=== PATIENT | female | born 1980 | race Caucasian/White ===

== ENCOUNTER 2020-06-10 10:58 | Outpatient (NON) | payer OTHER, SELFPAY ==
[2020-06-10 21:15] LABS: SARS-CoV-2 RNA PCR Negative
== END 2020-06-10 10:59 ==
PROVIDERS: Visit Provider Physician Assistant
DX: R68.83 Chills (without fever) (principal); Z20.828 Contact with and (suspected) exposure to other viral communicable diseases
CPT/HCPCS: 87635; C9803; U0003

== ENCOUNTER 2021-11-21 15:50 | Outpatient (CLI) | payer OTHER, SELFPAY ==
--- NOTE | ~2021-11-21 | MM_ITS ---
EXAMINATION: MM scrn sarah implant BI w miguel HISTORY: Screening mammogram TECHNIQUE: Craniocaudal and mediolateral oblique 3-D tomosynthesis images with implant displacement a nd synthetic 2-D images were generated. Craniocaudal and mediolateral oblique views of the breasts wi thout implant displacement were obtained using full field digital mammography. CAD analysis was submi tted and interpreted. COMPARISON: 12/11/2017 bilateral screening mammogram BREAST PARENCHYMAL COMPOSITION: The breasts are extremely dense, which lowers the sensitivity of mamm ography. FINDINGS: Status post bilateral augmentation mammoplasty. There is no evidence of suspicious mass, ca lcification, or architectural distortion to suggest malignancy in either breast. There has been no garcía spicious interval change. IMPRESSION: 1. No mammographic evidence of malignancy. 2. Recommend routine screening mammography in one year. BI-RADS Category 1: Negative Reviewed, dictated and finalized at location A.
== END 2021-11-21 15:51 | disposition home or self-care (01) ==
LOC: ANHIMG 15:52
PROVIDERS: PCP Physician Assistant; Visit Provider Obstetrics & Gynecology
DX: Z12.31 Encounter for screening mammogram for malignant neoplasm of breast (principal)
CPT/HCPCS: 77063; 77067

== ENCOUNTER 2022-09-22 00:46 | Day surgery (SDC) | payer OTHER, SELFPAY ==
[2022-09-11 15:30] VITALS: BMI 20.9
--- NOTE | 2022-09-11 15:36 | PC.NURSE ---
Report to the Outpatient Waiting Room, entrance under the green pavilion located off [facility], at time 0930 on date 09/22/22. Planned Procedure Time: 1130. Time changes happen often and if your time is changed the preop area will call you the afternoon before. - You and your visitor will be asked to self-screen and do not enter if you have any COVID symptoms. - Only one visitor is requested with a max of two and NO children visitors are allowed at this time. - The patient visitor may be requested to leave or wait in car when not with patient due to distancing restrictions. - A mask is optional within the hospital at this time. Patients may have clear liquids (water, carbonated beverages, clear teas, apple juice) until 3 hours prior to surgery with a maximum of 20 ounces. - No food from midnight until time of surgery Take the following medications with a SIP of water the morning of surgery: SERTRALINE DO NOT STOP ANY OF YOUR OTHER PRESCRIPTION MEDICATIONS PRIOR TO SURGERY EXCEPT THE FOLLOWING Medications to discontinue per physician: N/A Date to take last dose: N/A Please no make-up, nail austrian, hairspray, perfume, deodorant, or body powder the day of surgery. No jewelry (including any body piercings) or valuables the day of surgery, leave them at home. Please take a shower or bath the night before, or the morning of, surgery with an antibacterial soap. Wear comfortable, loose fitting clothing. - Jewelry must be removed prior to entering the operating room. Rings and piercings that are not removed may be cut off. - The hospital will not accept responsibility for valuables. - Please leave all valuables, including medications, at home the day of surgery. If you are going home after surgery, a licensed truss driver helper must drive you home. - NO public transportation without another adult if you receive anesthesia. - We recommend that an adult stay with you for 24 hours following discharge. - We also recommend that you do not drive, make important decision, drink alcoholic beverages, or take any drugs that were not prescribed by your health care provider for at least 24 hours after your discharge time. Follow any additional instructions given to you from your surgeon. If you or anyone in your household have experienced Covid symptoms in the past week, please notify your surgeon or the nurse liaison at the phone number below for possible testing. Telephone instructions given to PT - GREG WEATHERS and asked if any additional questions and then verbalized understanding. Patient advised to call surgeon office or pre surgery nurse liaison [phone] if any additional questions.
--- NOTE | 2022-09-21 10:00 | WPDANESEPPF ---
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 Patient Data Age: 42 Gender: F Height: 1.68 m Weight: 59 kg Allergies Allergy/AdvReac Type Severity Reaction Status Date / Time cephalexin Allergy Intermediate Rash Verified 09/22/22 09:09 levofloxacin Allergy Intermediate Rash Verified 09/22/22 09:09 Home Medications Medication Instructions Recorded Confirmed Type sertraline 100 mg tablet 100 mg PO DAILY 09/06/21 09/22/22 History lisdexamfetamine 30 mg capsule 30 mg PO DAILY 09/20/22 09/22/22 History (Vyvanse) Patient hx anesthesia problems: none Family hx anesthesia problems: none Results Review: All pre-operative results and documents have been reviewed as part of the pre-operative evaluation. [facility] Past Medical History Medical History (Updated 09/06/21 @ 10:06 by Kassy Person) Anxiety Surgical History Surgical History (Updated 09/06/21 @ 10:03 by Key Nelson CMA) History of neck surgery History of spinal fusion Family History Family History Mother Family history of malignant neoplasm of thyroid Social History Social History Smoking status: Never smoker Alcohol intake: never Substance use: never Substance use type: does not use Living arrangements: with family Spiritual care concerns: No Anes - Eval Final PreProcedure Day of Procedure 09/21/22 10:00 Patient weight: normal Heart: regular rate and rhythm Lungs: clear to auscultation and normal air movement Airway: Mallampati scale class II Neurological: alert and oriented Last oral intake: >/= 8 hours ASA classification: I Emergent: no Anesthetic plan: proceed Anesthesia type and monitoring: general GIVS Results Review: All pre-operative results and documents have been reviewed as part of the pre-operative evaluation. Informed Consent: The patient's anesthetic plan and its attendant risks and benefits were discussed with the patient/family/POA. Questions were solicited and answers provided to the satisfaction of the patient/family/POA.
--- NOTE | 2022-09-22 07:37 | WPDHPUPDATE1 ---
History and Physical Update Update Date/Time: 09/22/22 07:37 History and Physical has been reviewed, including an updated exam of the patient. There are NO changes in the patient's condition. Risks, benefits, and alternatives have been discussed and questions answered. Patient agrees to proceed with procedure.
[2022-09-22 08:45] VITALS: BP 120/85; PULSE 78; RESP 16; TEMP 36.3; O2SAT 100
[2022-09-22] MEDS: LACTATED RINGERS 1,000 ML 30 ML IV CONT (09:20)
[2022-09-22] MEDS: CLINDAMYCIN 900 MG/D5W 50 ML 900 MG/50 ML PIGGYBACK 50 MG IVPB (10:35)
[2022-09-22] MEDS: BUPivacaine HCL 0.5% PF 30 ML VIAL 10 ML INFILTRATE (10:52)
[2022-09-22 11:20] VITALS: BP 88/57; PULSE 80; RESP 14; O2SAT 100
--- NOTE | 2022-09-22 11:43 | P.OP_ITS ---
Procedure Note - Detailed Date of Procedure 09/22/22 Pre-op Diagnosis Antoine's neuroma left foot Post-op Diagnosis Same Procedure Performed Excision of Antoine's neuroma left foot Surgeon Stef Barron JR, DPBryant Anesthesia MAC and Local Indications Pain and paresthesias 3rd intermetatarsal space left foot Findings hypertrophic amorphous fibrous/neural tissue to the third intermetatarsal space Description of Procedure Under mild sedation, the patient was brought in to the operating room, placed on the operating table in the supine position. A pneumatic ankle tourniquet was placed about the patient's ipsilateral ankle. Following IV sedation, local anesthesia was obtained about the ankle utilizing 20 mL of 0.5% Marcaine plain and 2% Lidocaine plain to with an ankle ring block. The foot was then scrubbed, prepped, and draped in the usual aseptic manner. An Esmarch bandage was then used to exsanguinate the patient's foot and the pneumatic ankle tourniquet was then inflated. An incision was made along the dorsal 3rd inter metatarsal space. All bleeders were cauterized as necessary. The Deep transverse intermetatarsal ligament was severed. Next, dissection was continued deep to the proper digital plantar nerve which was hypertrophied and amorphous. It was dissected proximal to the central metatarsal shaft area and transected next the distal branches were dissected and transected to the affected third and fourth digits. The neural tissue was sent for gross and histo. The Deep subcutaneous tissue was reapproximated with 4.0 Vicryl and the skin was reapproximated with 4.0 Monocryl. Upon completion of the procedure, the dorsal incision was dressed with Steri- Strips, Adaptic, 4x4s, Kerlix, and Coban. The pneumatic ankle tourniquet was then deflated and a prompt hyperemic response was noted to all digits of the affected foot. An orthopedic pneumatic boot was then applied. The patient did very well with the procedure and the anesthesia. The patient was transferred to the recovery room with vital signs stable and vascular status intact to all toes of the affected foot. Following a period of postoperative monitoring, the patient will be discharged home on the following written and oral postoperative instructions: 1. The patient should keep the dressing clean, dry, and intact. Use a cast protector bag with showers. 2. The patient will be strictly protected weight bearing with an orthopedic pneumatic boot. 3. Patient should ice and elevate the foot when at rest. 4. The patient is to contact Dr. Barron for all postop care and if any problems arise. 5. Prescriptions were written for Percocet 5/325 dispensed 40 to be taken 1 p.o. q.4-6 hours as needed for severe pain. Estimated Blood Loss 1 Pathology Yes Complications No immediate complications Condition Stable Disposition Same day
[2022-09-22] MEDS: ONDANSETRON INJ 4 MG/2 ML VIAL IV PUSH (11:49)
[2022-09-22 11:50] VITALS: BP 108/61; PULSE 65; RESP 15; O2SAT 100
[2022-09-22 12:30] VITALS: BP 112/69; PULSE 66; RESP 16
== END 2022-09-22 12:35 | disposition home or self-care (01) ==
PROVIDERS: PCP Physician Assistant; Visit Provider Podiatrist Foot & Ankle Surgery
PROC: (CPT 28080; principal; 2022-09-22 10:30)
DX: G57.62 Lesion of plantar nerve, left lower limb (principal); F41.9 Anxiety disorder, unspecified; Z98.1 Arthrodesis status
CPT/HCPCS: 28080; 88304; 88313; J2250; J2405; J2704; J3010; J7120

== ENCOUNTER 2023-01-19 14:15 | Outpatient (CLI) | payer OTHER, SELFPAY ==
--- NOTE | ~2023-01-19 | MM_ITS ---
EXAMINATION: MM scrn sarah implant BI w miguel HISTORY: Screening mammogram TECHNIQUE: Craniocaudal and mediolateral oblique 3-D tomosynthesis images with implant displacement a nd synthetic 2-D images were generated. Craniocaudal and mediolateral oblique views of the breasts wi thout implant displacement were obtained using full field digital mammography. CAD analysis was submi tted and interpreted. COMPARISON: November 21, 2021, December 11, 2017 bilateral implant screening mammogram examinations BREAST PARENCHYMAL COMPOSITION: The breasts are extremely dense, which lowers the sensitivity of mamm ography. FINDINGS: Status post bilateral augmentation mammoplasty. There is no evidence of suspicious mass, ca lcification, or architectural distortion to suggest malignancy in either breast. There has been no garcía spicious interval change. IMPRESSION: 1. No mammographic evidence of malignancy. 2. Recommend routine screening mammography in one year. BI-RADS Category 1: Negative Reviewed, dictated and finalized at location A.
== END 2023-01-19 14:16 | disposition home or self-care (01) ==
PROVIDERS: PCP Physician Assistant; Visit Provider Physician Assistant
DX: Z12.31 Encounter for screening mammogram for malignant neoplasm of breast (principal)
CPT/HCPCS: 77063; 77067

== ENCOUNTER 2023-10-16 11:41 | Emergency (ER) | payer OTHER, SELFPAY ==
[2023-10-16 11:51] VITALS: BP 139/93; PULSE 85; RESP 16; TEMP 36.3; O2SAT 100
--- NOTE | 2023-10-16 11:56 | ED.SKABFB ---
HPI - Skin/Abscess/Foreign Bdy General Chief complaint: Skin/Abscess/Foreign Body Stated complaint: Buttock Abscess Time Seen by Provider: 10/16/23 11:56 Source: patient, RN notes reviewed and old records reviewed Mode of arrival: ambulatory Limitations: no limitations History of Present Illness HPI narrative: 43 year old female who presents to express are with complaints of small abscess to her left lower inner buttock region for 2 week duration. Patient reports some tenderness to area on palpation. Patient reports no drainage from area is concerned because is suppose to go to [facility] in 2 weeks. Patient reports that she has not taken any OTC medications for her discomfort. Patient has minimal redness to skin area on left buttock with palpable induration, no warmth to area, discomfort on palpation. MD complaint: abscess/boil Onset (ago): week(s) (2) Location: buttocks (left) Severity scale (1-10): 6 Exacerbating factors: palpation Treatments prior to arrival: none Related Data Home Medications Medication Instructions Recorded Confirmed sertraline 100 mg tablet 100 mg PO DAILY 09/06/21 10/16/23 lisdexamfetamine 30 mg capsule 30 mg PO DAILY 09/20/22 10/16/23 (Vyvanse) alprazolam 0.25 mg tablet 0.25 mg PO BID PRN Anxiety 10/16/23 10/16/23 Allergies Allergy/AdvReac Type Severity Reaction Status Date / Time cephalexin Allergy Intermediate Rash Verified 10/16/23 11:49 levofloxacin Allergy Intermediate Rash Verified 10/16/23 11:49 Review of Systems Review of Systems: CONSTITUTIONAL: Denies fever, chills, or sweats. CARDIOVASCULAR: Denies chest pain, palpitations, or edema. RESPIRATORY: Denies cough or dyspnea. GASTROINTESTINAL: Denies abdominal pain, nausea, vomiting SKIN: Reports redness and swelling with 1cm X1cm area of induration with no pustule formation to the left lower inner buttock area which is tender to palpation, no fluctuance of skin tissue noted.. Denies purulent drainage, vesicles, pain beyond proportion, Reports no fevers, chills or sweats. MUSCULOSKELETAL: Denies myalgia. 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 There is no relevant family history pertinent to the presenting complaint Exam Narrative: GENERAL: Well-appearing, well-nourished, and in no acute distress. HEAD: Normocephalic, atraumatic. EYES: PERRLA and EOMI. ENT: Nares clear, no rhinorrhea or epistaxis. Mucous membranes moist. NECK: Supple.no lymphadenopathy CHEST: Clear to auscultation. No respiratory distress. SAO2 100% on room air HEART: Regular rate and rhythm. No murmur heard. Normal peripheral pulses. ABDOMEN: Soft, nontender, nondistended, normal active bowel sounds. EXTREMITIES: Normal range of motion. No edema. SKIN: Warm, dry. Erythema, induration, tenderness, 1cm X1cm area to left lower inner buttock with no warmth noted no fluctuance of tissue, only mild redness of skin, increased tenderness past 3 days reported. NEURO: No focal deficits. Alert and oriented x3. Course Course Em
== END 2023-10-16 12:18 | disposition home or self-care (01) ==
PROVIDERS: Emergency Provider Registered Nurse; PCP Physician Assistant
DX: L02.31 Cutaneous abscess of buttock (principal); F41.9 Anxiety disorder, unspecified; F32.A Depression, unspecified; Z79.899 Other long term (current) drug therapy
CPT/HCPCS: 99213; G0463

== ENCOUNTER 2023-12-03 03:32 | Day surgery (SDC) | payer OTHER, SELFPAY ==
[2023-11-26 13:26] VITALS: BMI 21.7
--- NOTE | 2023-11-26 13:30 | PC.NURSE ---
Report to the Outpatient Waiting Room, entrance under the green pavilion located off [facility], at time 1100 on date 12/03/23. Planned Procedure Time: 1300. Time changes happen often and if your time is changed the preop area will call you the afternoon before. - You and your visitor will be asked to self-screen and do not enter if you have any COVID symptoms. - A mask is optional within the hospital at this time. Patients may have clear liquids (water, carbonated beverages, clear teas, apple juice) until 3 hours prior to surgery with a maximum of 20 ounces. - No food from midnight until time of surgery - FOLLOW INSTRUCTIONS FROM DR. JAY'S OFFICE Take the following medications with a SIP of water the morning of surgery: XANAX IF NEEDED, SERTRALINE DO NOT STOP ANY OF YOUR OTHER PRESCRIPTION MEDICATIONS PRIOR TO SURGERY ?EXCEPT THE FOLLOWING Medications to discontinue per physician: N/A Date to take last dose: N/A Please no make-up, nail eritrean, hairspray, perfume, deodorant, or body powder the day of surgery. No jewelry (including any body piercings) or valuables the day of surgery, leave them at home. Please take a shower or bath the night before, or the morning of, surgery with an antibacterial soap. Wear comfortable, loose fitting clothing. - Jewelry must be removed prior to entering the operating room. Rings and piercings that are not removed may be cut off. - The hospital will not accept responsibility for valuables. - Please leave all valuables, including medications, at home the day of surgery. If you are going home after surgery, a licensed driver helper must drive you home. - NO public transportation without another adult if you receive anesthesia. - We recommend that an adult stay with you for 24 hours following discharge. - We also recommend that you do not drive, make important decision, drink alcoholic beverages, or take any drugs that were not prescribed by your health care provider for at least 24 hours after your discharge time. Follow any additional instructions given to you from your surgeon. If you or anyone in your household have experienced Covid symptoms in the past week, please notify your surgeon or the nurse liaison at the phone number below for possible testing. Telephone instructions given to PT Maryann GARZA and asked if any additional questions and then verbalized understanding. Patient advised to call surgeon office or pre surgery nurse liaison [phone] if any additional questions.
[2023-12-03] VITALS (7 sets, daily range): BP systolic 115–132; BP diastolic 66–90; PULSE 71–104; RESP 12–18; TEMP 36.1–36.6; O2SAT 100
[2023-12-03] MEDS: LACTATED RINGERS 1,000 ML 30 ML IV CONT (11:37)
[2023-12-03] MEDS: ACETAMINOPHEN 500 MG TABLET 1000 MG PO (11:39)
[2023-12-03] MEDS: KETOROLAC 15 MG/ML VIAL (*BKC) IV PUSH (11:40)
--- NOTE | 2023-12-03 11:53 | WPDHPUPDATE1 ---
History and Physical Update Update Date/Time: 12/03/23 11:53 History and Physical has been reviewed, including an updated exam of the patient. There are NO changes in the patient's condition. Risks, benefits, and alternatives have been discussed and questions answered. Patient agrees to proceed with procedure.
--- NOTE | 2023-12-03 12:10 | WPDANESEPPF ---
Anes - Initial Pre Proc Eval Procedure: Operation Date: 12/03/23 13:00 Proposed Procedures p Anorectal Examination Under Anesthesia, Excisional Hemorrhoidectomy, Possible Lateral Internal Sphincterotomy - Ishmael Mack MD Date/Time: 12/03/23 12:10 Surgeon: Ishmael aMck MD Pre Op Diagnosis: External Hemorrhoid Patient Data Age: 43 Gender: F Height: 1.68 m Weight: 62.3 kg Last Vital Signs Temp 97.9 F 12/03/23 11:28 Pulse 79 12/03/23 11:28 Resp 18 12/03/23 11:28 BP 121/66 12/03/23 11:28 Pulse Ox 100 12/03/23 11:28 O2 Del Method Room Air 12/03/23 11:28 Allergies Allergy/AdvReac Type Severity Reaction Status Date / Time cephalexin Allergy Intermediate Rash Verified 12/03/23 11:22 levofloxacin Allergy Intermediate Rash Verified 12/03/23 11:22 Home Medications Medication Instructions Recorded Confirmed Type sertraline 100 mg tablet 100 mg PO DAILY 09/06/21 12/03/23 History lisdexamfetamine 30 mg capsule 30 mg PO DAILY 09/20/22 12/03/23 History (Vyvanse) alprazolam 0.25 mg tablet 0.25 mg PO BID PRN Anxiety 10/16/23 12/03/23 History Patient hx anesthesia problems: none Family hx anesthesia problems: none Results Review: All pre-operative results and documents have been reviewed as part of the pre-operative evaluation. 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 Surgical History Surgical History History of breast augmentation History of neck surgery History of spinal fusion Hx of tonsillectomy S/P excision of neuroma Family History Family History Mother Family history of malignant neoplasm of thyroid Grandparent Heart disease Social History Social History Social History: 1 cup coffee daily Smoking status: Never smoker Alcohol intake: never Alcohol use details: socially Substance use: never Substance use type: does not use Living arrangements: with family Spiritual care concerns: No Anes - Eval Final PreProcedure Day of Procedure 12/03/23 12:10 Patient weight: normal Heart: regular rate and rhythm Lungs: clear to auscultation Airway: Mallampati scale class II Neurological: alert and oriented Last oral intake: >/= 8 hours ASA classification: II Emergent: no Anesthetic plan: proceed Anesthesia type and monitoring: general ETT and standard monitoring Results Review: All pre-operative results and documents have been reviewed as part of the pre-operative evaluation. Informed Consent: The patient's anesthetic plan and its attendant risks and benefits were discussed with the patient/family/POA. Questions were solicited and answers provided to the satisfaction of the patient/family/POA.
[2023-12-03] MEDS: CLINDAMYCIN 900 MG/D5W 50 ML 900 MG/50 ML PIGGYBACK 50 MG IVPB (12:30)
[2023-12-03] MEDS: LIDO 1%/EPINEPHRINE 1:100,000 50 ML VIAL 20 ML INFILTRATE (12:56)
[2023-12-03] MEDS: BUPivacaine HCL 0.5% 10 ML AMP 20 ML INFILTRATE (12:56)
[2023-12-03] MEDS: LIDOCAINE HCL 2% GEL UROJET 10 ML PKG MUCOUS MEM (12:57)
--- NOTE | 2023-12-03 13:31 | W.PM.PROC2 ---
Procedure Note - Detailed Date of Procedure 12/03/23 Pre-op Diagnosis External, internal Hemorrhoid Post-op Diagnosis Same Procedure Performed Excisional hemorrhoidectomy x1 Surgeon Ishmael Mack MD Anesthesia General Indications Patient is a 43-year-old female presented with complaints of having some minor bleeding but irritation and pain from a single combined internal and external hemorrhoids in the posterior midline at 12:00 p.m. with the patient prone. She wishes to have an excisional hemorrhoidectomy to excise out this symptomatic hemorrhoid. Findings Patient has some minor grade 1 to grade 2 Marines at the 9:00. and 6:00. positions with the patient prone. She had a grade 2 to grade 3 combined internal hemorrhoid with perianal at the 12 o'clock position in the midline with the patient prone. This hemorrhoid was not thrombosed but there was evidence of chronic irritation Description of Procedure After informed consent was obtained patient brought to the operating room she was placed under general endotracheal anesthesia on the gurney and then turned into the prone heidi-knife position on the operating table. The buttocks were then taped apart and the perianal region was then prepped draped usual sterile fashion. A time-out was then performed correctly identifying the patient as well as procedure to be performed. She was given perioperative IV antibiotics. I then started by performing gentle dilation of the anal sphincters with a lubricated speculum. I then performed a circumferential evaluation distal rectum and anal canal. There are no polyps or lesions the distal rectum. In the anal canal there were some minor grade 1 to grade 2 internal hemorrhoids noted at the 6:00 and 9:00 positions with the patient prone. A larger grade 2 to grade 3 hemorrhoid was located at the posterior midline at the 12 o'clock position with the patient prone this is also shows a with a perianal external hemorrhoid skin tag. There was no evidence of a chronic anal fissure. I then proceeded to 1% lidocaine mixed with 0.5% Marcaine a 50 50 mixture underneath the largest hemorrhoid at the 12 o'clock position with the patient prone. A 2-0 chromic suture was then placed at the apex of the hemorrhoid above the dentate line. I then incised the tissue on either side of the hemorrhoid with a scalpel and brought incision onto the perianal skin to excise off the external hemorrhoid component and skin tag. I then split with a combination of scissor and electrocautery dissection identified the internal sphincter muscle fibers and preserve these without any injury. The hemorrhoid tissue excised with electrocautery and sent to pathology for examination. I then close incision by running the 2-0 chromic suture then a previously placed the approximate the edges of the tissue the way out to the perianal skin. At this point I then transition to a 3-0 Vicryl suture to completely close the perianal skin. The area was then cleaned and then I injected the remaining portion of the local anesthetic mixture around the anal opening for perianal block. I also injected bilateral dental nerve blocks. I then placed a lidocaine jelly soaked piece of Gelfoam into the anal canal. There is then covered with fluff 4x4 gauze ABD pads and disposable underwear. The patient tolerated the procedure well no complications. All sponges, needles, and instrument counts were correct at the end procedure. EBL was __20_cc. The patient was awakened and taken to recovery in stable and satisfactory condition. Implants None Estimated Blood Loss 20 Drains No Packing Yes (Lidocaine jelly soaked Gelfoam packing in the anal canal) Pathology Yes (Hemorrhoid sent to pathology) Complications No immediate complications Condition Stable Disposition PACU [facility] Billing Surgery - Charge Forward: Surgery Billing
== END 2023-12-03 14:44 | disposition home or self-care (01) ==
PROVIDERS: PCP Physician Assistant; Visit Provider Surgery
PROC: (CPT 46255; principal; 2023-12-03 13:00)
DX: K64.4 Residual hemorrhoidal skin tags (principal); F41.8 Other specified anxiety disorders; Z98.1 Arthrodesis status; Z98.890 Other specified postprocedural states; Z86.018 Personal history of other benign neoplasm; Z80.8 Family history of malignant neoplasm of other organs or systems; Z82.49 Family history of ischemic heart disease and other diseases of the circulatory system
CPT/HCPCS: 46255; 88304; A9270; J1100; J1885; J2250; J2405; J2704; J3010; J7120

== ENCOUNTER 2024-05-02 14:13 | Outpatient (CLI) | payer OTHER, SELFPAY ==
--- NOTE | ~2024-05-02 | MM_ITS ---
EXAMINATION: MM scrn sarah implant BI w miguel HISTORY: Screening mammogram TECHNIQUE: Craniocaudal and mediolateral oblique 3-D tomosynthesis images with implant displacement a nd synthetic 2-D images were generated. Craniocaudal and mediolateral oblique views of the breasts wi thout implant displacement were obtained using full field digital mammography. CAD analysis was submi tted and interpreted. COMPARISON: Comparison to multiple prior studies sequentially, with oldest reviewed study dated 12/11. BREAST PARENCHYMAL COMPOSITION: Dense: The breasts are heterogeneously dense, which may obscure small masses FINDINGS: There is no evidence of suspicious mass, calcification, or architectural distortion to sugg est malignancy in either breast. There has been no suspicious interval change. IMPRESSION: 1. No mammographic evidence of malignancy. 2. Recommend routine screening mammography in one year. BI-RADS Category 1: Negative Reviewed, dictated and finalized at location B.
== END 2024-05-02 14:14 | disposition home or self-care (01) ==
LOC: ANHIMG 14:16
PROVIDERS: PCP Physician Assistant; Visit Provider Obstetrics & Gynecology
DX: Z12.31 Encounter for screening mammogram for malignant neoplasm of breast (principal)
CPT/HCPCS: 77063; 77067

== ENCOUNTER 2024-06-05 13:26 | Outpatient (CLI) | payer OTHER, SELFPAY | END 2024-06-05 13:27 | disposition home or self-care (01) | LOC: ANHSURGERY 13:30 | PROVIDERS: PCP Physician Assistant; Visit Provider Obstetrics & Gynecology | DX: D25.9 Leiomyoma of uterus, unspecified (principal) | CPT/HCPCS: 36415; 86850; 86900; 86901 ==

== ENCOUNTER 2024-06-12 01:00 | Day surgery (SDC) | payer OTHER, SELFPAY ==
[2024-06-04 09:35] VITALS: BMI 20.9
--- NOTE | 2024-06-04 09:40 | PC.NURSE ---
Report to the Outpatient Waiting Room, entrance under the green pavilion located off [facility], at time _0830_ on date _[id number]_. Planned Procedure Time: _1030_.? Time changes happen often and if your time is changed the preop area will call you the afternoon before. - You and your visitor will be asked to self-screen and do not enter if you have any COVID symptoms. Please call surgeon if you need to reschedule. - A mask is optional within the hospital at this time. Patients may have clear liquids (water, carbonated beverages, clear teas, apple juice) until 3 hours prior to surgery with a maximum of 20 ounces. - No food from midnight until time of surgery and no smoking Take only the following medications with a SIP of water on the morning of surgery: __Sertraline and if needed may take Alprazolam____ DO NOT STOP ANY OF YOUR OTHER PRESCRIPTION MEDICATIONS PRIOR TO SURGERY EXCEPT THE FOLLOWING Medications to discontinue per physician ___None___ Please no make-up, nail japanese, hairspray, perfume, deodorant, or body powder the day of surgery.? No jewelry (including any body piercings) or valuables the day of surgery, leave them at home.? Please take a shower or bath the night before, or the morning of, surgery with an antibacterial soap.? Wear comfortable, loose fitting clothing.? - Jewelry must be removed prior to entering the operating room.? Rings and piercings that are not removed may be cut off. - The hospital will not accept responsibility for valuables.? - Please leave all valuables, including medications, at home the day of surgery. If you are going home after surgery, a licensed cat driver must drive you home.? - NO public transportation without another adult if you receive anesthesia. - We recommend that an adult stay with you for 24 hours following discharge. - We also recommend that you do not drive, make important decision, drink alcoholic beverages, or take any drugs that were not prescribed by your health care provider for at least 24 hours after your discharge time. Follow any additional instructions given to you from your surgeon. Telephone instructions given to __Jumana_and asked if any additional questions and then verbalized understanding. Patient advised to call surgeon office or pre surgery nurse liaison [phone] if any additional questions.
[2024-06-12] VITALS (8 sets, daily range): BP systolic 87–110; BP diastolic 49–72; PULSE 58–80; RESP 7–16; TEMP 36.1–36.8; O2SAT 97–100
--- NOTE | 2024-06-12 08:43 | PM.IMHP ---
H&P: HPI History of Present Illness Date/Time: 06/12/24 08:43 Chief Complaint: Painful periods Narrative: 43 y/o who has had an endometrial ablation. Her has had a vasectomy. 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 Uterus is fibroid. She is here for definitive management. 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 Surgical History Surgical History History of breast augmentation History of endometrial ablation History of hemorrhoidectomy Excisional hemorrhoidectomy x1 12/03/23 History of laparoscopy History of neck surgery History of spinal fusion Hx of tonsillectomy S/P excision of neuroma Family History Family History Mother Family history of malignant neoplasm of thyroid Grandparent Heart disease Social History Social History Social History: 1 cup coffee daily Smoking status: Never smoker Alcohol intake: never Alcohol use details: socially Substance use: never Substance use type: does not use Do You Feel Safe in your Home?: Yes Lack of Transportation: No Lack of Food: Never True Current Housing: I Have Housing Concerned About Future Housing: No Difficulty Paying Gas/Electric Bills: No Difficulty Paying for Meds: No Currently Unemployed: No Education: Bachelor's Degree Difficulty w/ Childcare or Family Care: No Living arrangements: with family Spiritual care concerns: No Meds Home Medications and Allergies Home Medications Medication Instructions Recorded Confirmed Type sertraline 100 mg tablet 100 mg PO DAILY 09/06/21 06/04/24 History lisdexamfetamine 30 mg capsule 30 mg PO DAILY 09/20/22 06/04/24 History (Pao) alprazolam 0.25 mg tablet 0.25 mg PO BID PRN Anxiety 10/16/23 06/04/24 History Allergies Allergy/AdvReac Type Severity Reaction Status Date / Time cephalexin Allergy Intermediate Rash Verified 06/04/24 09:35 levofloxacin Allergy Intermediate Rash Verified 06/04/24 09:35 Exam Const: Orientation/consciousness: patient oriented x3 Other: Well-developed, well-nourished female in no acute distress. Neck: Thyroid: thyroid normal Lymphatic: no lymphadenopathy noted (in neck, axilla or inguinal nodes) Resp: Effort & Inspection: normal respiratory effort Auscultation: clear to auscultation bilaterally Cardio: Rate: regular rate Rhythm: regular rhythm Heart sounds: S1 normal heart sound present and S2 normal heart sound present GI: Other: ABD: Soft, nontender, nondistended. No guarding or rebound tenderness. No hepatosplenomegaly. : General: Yes no CVA tenderness Other: External genitalia: normal female hair distribution, without lesion. Urethral meatus: no lesion, non prolapsed. Bladder: no mass, nontender Vagina: well-estrogenized, without lesion or discharge. No cystocele or rectocele. Cervix: no lesion or discharge. Uterus: small, anteverted, freely mobile, nontender Adnexa: no mass or tenderness. Anus/perineum: no lesions, nontender Back/Spine/Pelvis: Back: no CVA tenderness Skin: General skin exam: normal color and no rashes or lesions noted Neuro: General: patient oriented x3 Extrem: Other: Extremities: nontender with no edema Psych: Mental Status: mental status grossly normal Affect: normal affect Assessment and Plan Assessment and plan (1) Dysmenorrhea: Code(s): N94.6 - Dysmenorrhea, unspecified Status: Acute Assessment and Plan: A: Persistent dysmenorrhea with a fibroid uterus. P: Offered total vaginal hysterectomy with bilateral salpingectomies. She understands risks of surgery to include risks of anesthesia, risks of pain, infection, bleeding, blood products, thromboembolic phenomena and damage to adjacent structures such as bowel, bladder, ureters, blood vessels and nerves. She understands all these risks and elects to proceed with surgery.
[2024-06-12] MEDS: LACTATED RINGERS 1,000 ML 30 ML IV CONT ×2 (09:00→12:20)
[2024-06-12] MEDS: KETOROLAC 15 MG/ML VIAL (*BKC) IV PUSH (10:00)
[2024-06-12] MEDS: SCOPOLAMINE 1 MG PATCH 1 PATCH TRANSDERM (10:00)
[2024-06-12] MEDS: ACETAMINOPHEN 500 MG TABLET 1000 MG PO ×3 (10:00→22:40)
--- NOTE | 2024-06-12 10:45 | WPDHPUPDATE1 ---
History and Physical Update Update Date/Time: 06/12/24 10:45 History and Physical has been reviewed, including an updated exam of the patient. There are NO changes in the patient's condition. Risks, benefits, and alternatives have been discussed and questions answered. Patient agrees to proceed with procedure.
--- NOTE | 2024-06-12 10:46 | WPDANESEPPF ---
Anes - Initial Pre Proc Eval Procedure: Operation Date: 06/12/24 10:30 Proposed Procedures p Total Vaginal Hysterectomy with Bilateral Salpingectomy - Angel Neil MD Date/Time: 06/12/24 10:46 Surgeon: Angel Neil MD Pre Op Diagnosis: enlargd uterus, fibroids,dysmenorrhea Patient Data Age: 43 Gender: F Height: 1.68 m Weight: 59 kg Allergies Allergy/AdvReac Type Severity Reaction Status Date / Time cephalexin Allergy Intermediate Rash Verified 06/04/24 09:35 levofloxacin Allergy Intermediate Rash Verified 06/04/24 09:35 Home Medications Medication Instructions Recorded Confirmed Type sertraline 100 mg tablet 100 mg PO DAILY 09/06/21 06/04/24 History lisdexamfetamine 30 mg capsule 30 mg PO DAILY 09/20/22 06/04/24 History (Vyvanse) alprazolam 0.25 mg tablet 0.25 mg PO BID PRN Anxiety 10/16/23 06/04/24 History Patient hx anesthesia problems: none Family hx anesthesia problems: none Results Review: All pre-operative results and documents have been reviewed as part of the pre-operative evaluation. 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 Surgical History Surgical History History of breast augmentation History of endometrial ablation History of hemorrhoidectomy Excisional hemorrhoidectomy x1 12/03/23 History of laparoscopy History of neck surgery History of spinal fusion Hx of tonsillectomy S/P excision of neuroma Family History Family History Mother Family history of malignant neoplasm of thyroid Grandparent Heart disease Social History Social History Social History: 1 cup coffee daily Smoking status: Never smoker Alcohol intake: never Alcohol use details: socially Substance use: never Substance use type: does not use Do You Feel Safe in your Home?: Yes Lack of Transportation: No Lack of Food: Never True Current Housing: I Have Housing Concerned About Future Housing: No Difficulty Paying Gas/Electric Bills: No Difficulty Paying for Meds: No Currently Unemployed: No Education: Bachelor's Degree Difficulty w/ Childcare or Family Care: No Living arrangements: with family Spiritual care concerns: No Anes - Eval Final PreProcedure Day of Procedure 06/12/24 10:46 Heart: regular rate and rhythm Lungs: normal air movement Airway: Mallampati scale class II Neurological: alert and oriented Last oral intake: >/= 8 hours ASA classification: II Emergent: no Anesthetic plan: proceed Anesthesia type and monitoring: general and standard monitoring Results Review: All pre-operative results and documents have been reviewed as part of the pre-operative evaluation. Informed Consent: The patient's anesthetic plan and its attendant risks and benefits were discussed with the patient/family/POA. Questions were solicited and answers provided to the satisfaction of the patient/family/POA.
[2024-06-12] MEDS: ceFAZolin 2 GM/D5W 50 ML 2 GM/50 ML BAG IVPB (11:06)
[2024-06-12 11:31] LABS: BEDSIDEPREGUCG Negative (Negative)
--- NOTE | 2024-06-12 12:15 | P.OP_ITS ---
Procedure Note - Detailed Date of Procedure 06/12/24 Pre-op Diagnosis Dysmenorrhea Fibroid uterus Post-op Diagnosis Same Procedure Performed Total vaginal hysterectomy with bilateral salpingectomies Surgeon Angel Neil MD Anesthesia General Findings Enlarged, fibroid uterus. Small right ovarian cyst. Otherwise, unremarkable cervix, tubes and ovaries. Description of Procedure The patient was taken to the operating room where she was prepared and draped in the usual sterile fashion in the dorsal lithotomy position. The bladder was drained with red rubber catheter. A weighted speculum was placed posteriorly. A Gil retractor was used anteriorly. The cervix was grasped with a single- tooth tenaculum. Ten mL of sterile saline was infiltrated circumferentially around the cervix to aid in tissue plane dissection. The cervix was circumscribed using electrocautery. The peritoneal cavity was entered sharply posteriorly and a long weighted speculum was placed. The uterosacral and cardinal ligaments on both sides were then clamped, transected and suture ligated using 0 Vicryl. These were tagged for later identification. The bladder was dissected off the cervix and lower uterine segment and reflected away. The LigaSure device was then used to clamp, ligate and transect the broad ligaments bilaterally. Finally, the utero-ovarian ligament, round ligament and tube complexes on both sides were able to be clamped, transected and suture lig ated using 0 Vicryl. The specimen was passed off to be sent to pathology. The bilateral fallopian tubes were then dissected, clamped, ligated and transected using the LigaSure device and passed off the field. The pedicles were inspected and found to be hemostatic. The vaginal cuff angles were then transfixed to the ipsilateral cardinal uterosacral ligaments for support. The vaginal cuff was r eapproximated using 0 Vicryl in a running, locked fashion. Hemostasis was excellent. A Cordero catheter was placed. Vaginal packing soaked in Premarin cream was placed. Sponge, lap, needle and instrument counts were correct. The patient was awakened and taken to the recovery room in stable condition. I was present and scrubbed for the entire procedure. Implants None Estimated Blood Loss 100 Drains Yes (cordero) Packing Yes (vaginal) Pathology Yes (Cervix, uterus, bilateral Fallopian tubes) Complications None Condition Stable Disposition PACU
[2024-06-12] MEDS: fentaNYL CITRATE INJ (*CRX) 100 MCG/2 ML VIAL 25 MCG IV PUSH ×4 (12:32→12:48)
--- NOTE | 2024-06-12 13:22 | PC.NURSE ---
This patient, Jumana Valera, was received from PACU on 06/12/24 at 1322. Patient/family oriented to unit policies and routines
[2024-06-12] MEDS: DEXTROSE 5%/0.45% SOD CHL 1,000 ML 125 ML IV CONT ×2 (13:57→22:39)
[2024-06-12] MEDS: MORPHINE SULFATE (*CRX) 4 MG/ML INJ IV PUSH (13:58)
[2024-06-12] MEDS: SIMETHICONE 80 MG TAB.CHEW PO (16:24)
[2024-06-12] MEDS: KETOROLAC 30 MG/ML VIAL (*BKC) IV PUSH ×2 (16:25→22:40)
[2024-06-12] MEDS: oxyCODONE HCL (*CRX) 5 MG TAB IR 10 MG PO (20:46)
[2024-06-12] MEDS: ENOXAPARIN 40 MG/0.4 ML SYRINGE SUB-Q (20:47)
[2024-06-13 05:00] VITALS: BP 102/67; PULSE 60; RESP 16; TEMP 36.8; O2SAT 99
[2024-06-13] MEDS: KETOROLAC 30 MG/ML VIAL (*BKC) IV PUSH (05:04)
[2024-06-13] MEDS: ACETAMINOPHEN 500 MG TABLET 1000 MG PO (05:04)
[2024-06-13 05:35] LABS: Basophils Percent Auto 0.2 % (0.2-1.2); Eosinophils Percent Auto 0.2 % (0-4.4); Hematocrit 30.4 % (37.0-47.0); Hemoglobin 10.4 g/dL (12.0-15.0); Immature Granulocyte Absolute 0.06 K/mm3 (0.00-0.031); Immature Granulocyte Percent A 0.5 % (0-0.5); Lymphocytes Absolute Auto 2.18 K/mm3 (0.9-3.2); Lymphocytes Percent Auto 19.1 % (18.3-44.2); Mean Corpuscular HGB Conc 34.2 g/dl (32-36); Mean Corpuscular Hemoglobin 31.9 pg (26-34); Mean Corpuscular Volume 93.3 fl (80-100); Mean Platelet Volume 10.2 fl (7.4-10.4); Monocytes Absolute Auto 0.9 K/mm3 (0.1-0.6); Monocytes Percent Auto 7.4 % (2.6-8.5); Neutrophils Absolute Auto 8.3 K/mm3 (1.3-6.7); Neutrophils Percent Auto 72.6 % (45.5-73.1); Platelet Count Result 205 k/mm3 (150-375); Red Blood Count 3.26 M/mm3 (4.2-5.4); Red Cell Distribution Width 11.6 % (11.5-14.5); White Blood Count 11.4 K/mm3 (4.5-10.0)
--- NOTE | 2024-06-13 07:03 | PM.GYNPNOP ---
SUPPORT TEAM ASSOC - A/P Postoperative Procedures: Procedures Operation Date: 06/12/24 10:30 Actual Procedure Side Surgeon p Total Vaginal Hysterectomy with Bilateral Salpingectomy Bilateral Angel Neil MD Postoperative day: 1 Postoperative plan: routine post-op care, see orders, ambulate, advance diet, voiding trials and discharge Time Spent With Patient Time: Total time spent is greater than 50% in coordination of care (as documented) at patient's floor/unit and/or counseling patient: Time with patient: less than 15 minutes SUPPORT TEAM ASSOC- PN:Subj Post-Op Subjective Date/time seen: 06/13/24 07:03 Subjective: patient reports feeling better, patient has no complaints, patient desires discharge, pain is well controlled and patient is tolerating oral intake Exam Const: General: cooperative, healthy appearing and comfortable HENMT: Head: normal to inspection Resp: Effort & Inspection: normal respiratory effort Cardio: Rate: regular rate Rhythm: regular rhythm Heart sounds: S1 normal heart sound present and S2 normal heart sound present GI: Inspection: normal to inspection and incision (cdi) SUPPORT TEAM ASSOC - PN: Obj Data Vital Signs Vital Signs: Vital Signs - 24 hr 06/12/24 09:00 06/12/24 12:20 06/12/24 12:35 Temperature 97.0 F L 97.4 F L Pulse Rate 74 58 L 65 Respiratory Rate 16 8 L 7 L Blood Pressure 110/72 87/50 L 89/57 L Pulse Oximetry 100 100 100 Oxygen Delivery Room Air Simple Face Mask Simple Face Mask Oxygen Flow Rate 8 8 06/12/24 12:50 06/12/24 13:05 06/12/24 13:50 Temperature 97.9 F Pulse Rate 64 77 59 L Respiratory Rate 10 L 12 16 Blood Pressure 90/49 L 97/66 L 98/63 L Pulse Oximetry 97 98 98 Oxygen Delivery Room Air Room Air Oxygen Flow Rate 06/12/24 16:00 06/12/24 20:30 06/12/24 20:30 Temperature 97.2 F L 98.2 F Pulse Rate 61 80 Respiratory Rate 16 16 Blood Pressure 104/62 100/59 L Pulse Oximetry 100 99 Oxygen Delivery Room Air Oxygen Flow Rate Intake/Output Intake/Output: Intake & Output 06/10/24 06/11/24 06/12/24 06/13/24 23:59 23:59 23:59 23:59 Intake Total 2350 Output Total 325 Balance 2024 Meds/Results Medications: Active Medications Generic Name Dose Route Start Last Admin Trade Name Freq PRN Reason Stop Dose Admin Acetaminophen 1,000 mg 06/12/24 18:00 06/13/24 05:04 Acetaminophen 500 Mg Tablet PO 1,000 mg Q6HR DAMEON Administration Alprazolam 0.25 mg 06/12/24 13:12 Alprazolam (*Crx) 0.25 Mg Tablet PO BID PRN Anxiety Docusate Sodium 100 mg 06/12/24 17:00 06/12/24 18:24 Docusate Sodium 100 Mg Capsule PO Not Given BID [facility] Enoxaparin Sodium 40 mg 06/12/24 18:00 06/12/24 20:47 Enoxaparin 40 Mg/0.4 Ml Syringe SUB-Q 40 mg Q24H DAMEON Administration Ibuprofen 600 mg 06/13/24 12:00 Ibuprofen 600 Mg Tablet PO Q6HR [facility] Morphine Sulfate 4 mg 06/12/24 13:12 06/12/24 13:58 Morphine Sulfate (*Crx) 4 Mg/Ml Inj IV PUSH 4 mg Q4H PRN Administration Breakthrough Pain Rated 7-10 or NPO Naloxone HCl 0.1 mg 06/12/24 13:12 Naloxone Hcl 0.4 Mg/Ml Vial IV PUSH Q2M PRN Respiratory rate less than 10 Ondansetron HCl 4 mg 06/12/24 13:12 Ondansetron Inj 4 Mg/2 Ml Vial IV PUSH Q6H PRN Nausea And Vomiting Oxycodone HCl 5 mg 06/12/24 13:12 Oxycodone Hcl (*Crx) 5 Mg Tab Ir PO Q4H PRN Pain Rated 4-6 Oxycodone HCl 10 mg 06/12/24 13:12 06/12/24 20:46 Oxycodone Hcl (*Crx) 5 Mg Tab Ir PO 10 mg Q6H PRN Administration Pain Rated 7-10 Sertraline HCl 100 mg 06/13/24 09:00 Sertraline Hcl 50 Mg Tablet PO DAILY [facility] Simethicone 80 mg 06/12/24 17:00 06/12/24 16:24 Simethicone 80 Mg Tab.Chew PO 80 mg TIDWM DAMEON Administration Labs 06/13/24 05:07 Labs: Laboratory Results - last 24 hr 06/12/24 06/13/24 09:00 05:07 WBC 11.4 H RBC 3.26 L Hgb 10.4 L Hct 30.4 L MCV 93.3 MCH 31.9 MCHC 34.2 RDW 11.6 Plt Count 205 MPV 10.2 Immature Gran % (Auto) 0.5 Neut % (Auto) 72.6 Lymph % (Auto) 19.1 [place] % (Auto) 7.4 Eos % (Auto) 0.2 Baso % (Auto) 0.2 Lymph # (Auto) 2.18 [place] # (Auto) 0.9 H Eos # (Auto) 0.0 Baso # (Auto) 0.0 Abs Immat Gran (auto) 0.06 H Absolute Neuts (auto) 8.3 H Absolute Nucleated RBC 0.000 Nucleated RBC % 0.0 POC Urine HCG, Qual Negative
--- NOTE | 2024-06-13 08:02 | WPDANESPN ---
Anes - Prog Note Post-Op Date/Time: 06/13/24 08:02 Cardiovascular status: normal Respiratory status: normal Airway patency: baseline Mental status: baseline Post-Op hydration status: normal Vital Signs: Last Vital Signs Temp 36.8 C 06/13/24 05:00 Pulse 60 06/13/24 05:00 Resp 16 06/13/24 05:00 BP 102/67 06/13/24 05:00 Pulse Ox 99 06/13/24 05:00 O2 Del Method Room Air 06/12/24 20:30 O2 Flow Rate 8 06/12/24 12:35 Pain Score (VAS): 1 I/O: Intake & Output 06/12/24 06/13/24 06/13/24 23:59 07:59 15:59 Intake Total 1700 600 Output Total 300 1000 Balance 1400 -400 Laboratory Tests 06/13/24 05:07 06/12/24 06/13/24 09:00 05:07 WBC 11.4 H RBC 3.26 L Hgb 10.4 L Hct 30.4 L MCV 93.3 MCH 31.9 MCHC 34.2 RDW 11.6 Plt Count 205 MPV 10.2 Immature Gran % (Auto) 0.5 Neut % (Auto) 72.6 Lymph % (Auto) 19.1 [place] % (Auto) 7.4 Eos % (Auto) 0.2 Baso % (Auto) 0.2 Lymph # (Auto) 2.18 [place] # (Auto) 0.9 H Eos # (Auto) 0.0 Baso # (Auto) 0.0 Abs Immat Gran (auto) 0.06 H Absolute Neuts (auto) 8.3 H Absolute Nucleated RBC 0.000 Nucleated RBC % 0.0 POC Urine HCG, Qual Negative Post-procedural complaints: none Patient Feedback: Patient satisfied with anesthetic care.
[2024-06-13 08:20] VITALS: BP 105/73; PULSE 62; RESP 16; TEMP 37; O2SAT 100
[2024-06-13] MEDS: SIMETHICONE 80 MG TAB.CHEW PO (08:35)
[2024-06-13] MEDS: DOCUSATE SODIUM 100 MG CAPSULE PO (08:36)
[2024-06-13] MEDS: SERTRALINE HCL 50 MG TABLET 100 MG PO (08:36)
[2024-06-13] MEDS: oxyCODONE HCL (*CRX) 5 MG TAB IR PO (08:49)
== END 2024-06-13 09:35 | disposition home or self-care (01) ==
LOC: ANHSURGERY 12:19 → ANHOB2 15:06
PROVIDERS: PCP Physician Assistant; Visit Provider Obstetrics & Gynecology
PROC: 0UT9FZZ Resection of Uterus, Via Natural or Artificial Opening With Percutaneous Endoscopic Assistance (ICD-10-PCS; CPT 58262; principal; 2024-06-12 10:30)
DX: D25.1 Intramural leiomyoma of uterus (principal); N94.6 Dysmenorrhea, unspecified; N83.201 Unspecified ovarian cyst, right side; N88.8 Other specified noninflammatory disorders of cervix uteri; N80.00 Endometriosis of the uterus, unspecified; N83.8 Other noninflammatory disorders of ovary, fallopian tube and broad ligament; F41.8 Other specified anxiety disorders
CPT/HCPCS: 58262; 36415; 85025; 88307; 99199; A9270; J0690; J1100; J1171; J1650; J1885; J2003; J2250; J2270; J2405; J2704; J3010; J7030; J7120

== ENCOUNTER 2025-03-26 10:04 | Emergency (ER) | payer OTHER, SELFPAY ==
[2025-03-26 10:13] VITALS: BP 126/87; PULSE 91; RESP 16; TEMP 36.9; O2SAT 100
[2025-03-26 10:24] LABS: EDSTREPNEGPOS1 Negative (Negative)
--- NOTE | 2025-03-26 10:37 | ED.URI ---
HPI - URI/Sore Throat General Chief Complaint: Upper Respiratory Infection Stated Complaint: Strep Test Time Seen by Provider: 03/26/25 10:31 Source: patient and RN notes reviewed Mode of arrival: ambulatory Limitations: no limitations History of Present Illness HPI Narrative: Patient presents today with a 4 day history of sore throat, fatigue, and left ear fullness. No OTC treatment prior to arrival. Denies any additional symptoms. History of tonsillectomy. Patient states she has some high anxiety and wanted to be tested for strep throat. Related Data Home Medications ?Medication ?Instructions ?Recorded ?Confirmed ?Last Taken ?Type sertraline 100 mg tablet 100 mg PO DAILY 09/06/21 06/12/24 06/12/24 06:00 History lisdexamfetamine 30 mg capsule 30 mg PO DAILY 09/20/22 03/26/25 06/11/24 09:00 History (Vyvmaliae) alprazolam 0.25 mg tablet 0.25 mg PO BID PRN Anxiety 10/16/23 03/26/25 06/11/24 History Allergies Allergy/AdvReac Type Severity Reaction Status Date / Time cephalexin Allergy Intermediate Rash Verified 03/26/25 10:14 levofloxacin Allergy Intermediate Rash Verified 03/26/25 10:14 PMFSH Past Medical History Medical History 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 Anxiety and depression Anxiety Surgical History Surgical History History of endometrial ablation History of laparoscopy History of hemorrhoidectomy Excisional hemorrhoidectomy x1 12/03/23 S/P excision of neuroma Hx of tonsillectomy History of neck surgery History of spinal fusion History of breast augmentation Family History Family History Mother Family history of malignant neoplasm of thyroid Grandparent Heart disease Social History Social History Social History: 1 cup coffee daily Smoking status: Never smoker Alcohol intake: never Alcohol use details: socially Substance use: never Substance use type: does not use Do You Feel Safe in your Home?: Yes Lack of Transportation: No Lack of Food: Never True Current Housing: I Have Housing Concerned About Future Housing: No Difficulty Paying Gas/Electric Bills: No Difficulty Paying for Meds: No Currently Unemployed: No Education: Bachelor's Degree Difficulty w/ Childcare or Family Care: No Living arrangements: with family Spiritual care concerns: No Comments At time of signature, I have reviewed and agree with nursing past medical, surgical, social and family history unless otherwise noted. Please see nursing chart for further information. There is no relevant family history pertinent to the presenting complaint Exam Narrative: GENERAL: Well-appearing, well-nourished, and in no acute distress. HEAD: Normocephalic, atraumatic. EYES: EOMI. No redness or drainage. Conjunctivae normal. ENT: Mucous membranes pink and moist. Nares clear. No rhinorrhea. Right TM normal. Left TM with mild middle ear effusion without evidence of bacterial infection. Throat normal with small amount of postnasal drainage. Uvula midline. Tonsils absent. NECK: Normal AROM. Supple. Right anterior cervical chain lymphadenopathy. CHEST: No respiratory distress. Clear to auscultation. HEART: Regular rate and rhythm. No murmur appreciated. EXTREMITIES: Normal range of motion. No edema. SKIN: Warm, dry, no rash. Capillary refill normal. Normal skin turgor. NEURO: No focal deficits. Alert and oriented x3. Gait steady. PSYCH: Normal affect. No signs of depression or anxiety. Course Course Level of Care: Express Care Visit Vital Signs Vital signs: Vital Signs Temperature 98.4 F 03/26/25 10:13 Pulse Rate 91 03/26/25 10:13 Respiratory Rate 16 03/26/25 10:13 Blood Pressure 126/87 03/26/25 10:13 Pulse Oximetry 100 03/26/25 10:13 Temperature 98.4 F 03/26/25 10:13 Pulse Rate 91 03/26/25 10:13 Respiratory Rate 16 03/26/25 10:13 Blood Pressure 126/87 03/26/25 10:13 Pulse Oximetry 100 03/26/25 10:13 Reviewed MDM - URI/Sore Throat MDM Narrative Medical decision making narrative: 44-year-old female patient presents today with a 4 day history of sore throat, fatigue, left ear fullness. No OTC treatment prior to arrival. Upon exam, patient has some postnasal drainage and a mild left middle ear effusion, and right anterior cervical chain lymphadenopathy, but otherwise normal exam. Rapid strep negative. Culture pending. Symptoms likely viral in etiology. Discussed [id number] medication use and duration of illness. No prescription medications indicated at this time. Anticipatory guidance given. Vital signs stable Differential Diagnosis Differential diagnosis: Likely upper respiratory infection, otitis media, viral infection, pharyngitis and other (Strep throat) Lab Data Attestation: I reviewed the patient's lab results. Labs: Lab Results 03/26/25 Range/Units 10:21 POC Grp A Strep Screen Negative (Negative) Critical Care Time Critical Care Time Critical Care Time: No Discharge Plan Discharge Clinical Impression: Acute serous otitis media of left ear Qualifiers: Recurrence: non-recurrent Qualified Code(s): H65.02 - Acute serous otitis media, left ear Upper respiratory infection Qualifiers: URI type: unspecified URI Qualified Code(s): J06.9 - Acute upper respiratory infection, unspecified Patient Disposition: Home Condition: Stable Instructions: Upper Respiratory Infection (DC), Fluid In The Ear (Serous Otitis Media) (ED) Additional Instructions: Your rapid strep swab was negative today at [facility]. You will be notified in a few days if the culture comes back positive for strep, and appropriate antibiotics will be called in for you at that time. Your symptoms are likely due to a viral illness, which is not treated with antibiotics. Viral symptoms can be present for up to 7-10 days. Take Tylenol or ibuprofen for fever or pain. Consider try an intranasal steroid such as Flonase for the fluid behind your left ear drum. Rest and stay hydrated. Follow up with your PCP in 5 days if symptoms are not improving. Go to the ER immediately if you have any difficulty breathing or swallowing. Patient Language: Swazi Prescriptions: No Action alprazolam 0.25 mg tablet 0.25 mg PO BID PRN (Reason: Anxiety) sertraline 100 mg tablet 100 mg PO DAILY lisdexamfetamine [Vyvanse] 30 mg capsule 30 mg PO DAILY oxycodone-acetaminophen [Percocet] 5-325 mg tablet 1 - 2 tablet PO Q6H PRN (Reason: pain) Qty: 30 0RF Follow-up/Referrals: Grace,CATHI Martinez [Primary Care Provider, Unknown] Time of Disposition: 10:42
== END 2025-03-26 10:45 | disposition home or self-care (01) ==
PROVIDERS: Emergency Provider Nurse Practitioner; PCP Physician Assistant
DX: H65.02 Acute serous otitis media, left ear (principal); J06.9 Acute upper respiratory infection, unspecified; Z79.899 Other long term (current) drug therapy
CPT/HCPCS: 87081; 87880; 99213; G0463

== ENCOUNTER 2025-06-18 09:27 | Outpatient (CLI) | payer OTHER, SELFPAY ==
--- OUTSIDE RECORDS SUMMARY | 2024-01-03 11:30 | XMS_ITS ---
Author Organization [facility] ([address]) Address [address] [place] [address] Care Team Providers Care Workers' Compensation Magistrate Name Role Phone Michelle Edwards Primary Care Provider UnavailDr. 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 Botox Only (non-migraine). 2. Jaw Dystonia. * Medical History: Objective: * Vitals: Assessment: * Assessment: 1. I diopathic orofacial dystonia - G24.4 (Primary) Plan: * Treatment: * Procedure Codes: 6 4615 CHEMODENERV MUSC MIGRAINE, J0585 BOTULINUM TOXIN TYPE A PER UNIT, J0585 BOTULINUM TOXIN TYPE A PER UNIT, Modifiers: JW * Follow Up: 3 Months (Reason: Toxin injection) * Billing Information: * Visit Code: * Procedure Codes: 34346 CHEMODENERV MUSC MIGRAINE. J0585 BOTULINUM TOXIN TYPE A PER UNIT. J0585 BOTULINUM TOXIN TYPE A PER UNIT. Modifiers: JW * Electronic signature of Dr. Ben Duong MD on 06/18/2025 at 10:01 AM FIRER DIESEL LOCOMOTIVE Sign off status: Pending * Provider: Bryant Duong MD Date: 0 01/03/2024 Generated for Trent rod/Omar/Sudeep on: 08/18/2024 10:01 AM FIRER DIESEL LOCOMOTIVE
--- OUTSIDE RECORDS SUMMARY | 2024-01-19 15:30 | XMS_ITS ---
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 Ben Ko Unavailable [phone] ZZ-Migration, Provider Unavailable Unavailab valera Allergies Allergen (clinical drug ingredient) Drug/Non Drug Allergy documented on EMR Reaction Allergy Type Onset Date Status KEFLEX (uncoded) rash Allergy Act sherman REASON FOR VISIT Multum To Medispan Conversion Encounter Medications Medication SIG (Take, Route, Fr equency, Duration) Notes Start Date End Date Status Sertraline HCl 100 MG 1 tab(s) orally once a day Active Vyvanse 30 MG 1 cap(s) orally once a day (in the morning) Active Encounters Encounter Location Date Provider Diagnosis [address] [address] 01/19/2024 Provider ZZ-Migration Plan Of Treatment No Information Progress Notes * Jumana WEATHERSDOB:1980 (44 yo F)Acc No.[id number]:01/19/2024 Patient: Jumana ROMAN Provider: Geraldo Gudino :1980 A ge:43 Y S ex:Female Date:01/19/2024 Address:[address] [id number] Pcp:Michelle Edwards Subjective: * Chief Complaints: * 1 . Multum To Medispan Conversion Encounter. * Medical History: * Medications: T aking Vyvanse 30 MG Capsule 1 cap(s) orally once a day (in the morning) , Taking Sertraline HCl 100 MG Tablet 1 tab(s) orally once a day * Allergies: K EFLEX: rash. Objective: * Vitals: Assessment: Plan: * Treatment: * Billing Information: * Visit Code: * Procedure Codes: * Electronic signature of Ariel BEAULIEU-Migration on 06/18/2025 at 10:01 AM CONCRETE MIXER TRUCK DRIVER Sign off status: Pending * Provider: Geraldo davis Migration Date: 0 01/19/2024 Generated for Trent rod/Omar/Sudeep on: 1 08/18/2024 10:01 AM CONCRETE MIXER TRUCK DRIVER
--- NOTE | ~2025-06-18 | MM_ITS ---
EXAMINATION: MM scrn sarah implant BI w miguel HISTORY: Screening mammogram TECHNIQUE: Craniocaudal and mediolateral oblique 3-D tomosynthesis images with implant displacement and synthetic 2-D images were generated. Craniocaudal and mediolateral oblique views of the breasts without implant displacement were obtained using full field digital mammography. CAD analysis was submitted and interpreted. COMPARISON: 12/11/2017 BREAST PARENCHYMAL COMPOSITION: Dense: The breasts are extremely dense, which lowers the sensitivity of mammography. FINDINGS: There is no evidence of suspicious mass, calcification, or architectural distortion to suggest malignancy in either breast. There has been no suspicious interval change. IMPRESSION: 1. No mammographic evidence of malignancy. 2. Recommend routine screening mammography in one year. BI-RADS Category 1: Negative Reviewed, dictated and finalized at location B. [employer]
--- OUTSIDE RECORDS SUMMARY | 2025-06-18 10:01 | XMS_ITS | Clinical Summary ---
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 Gender Identity Not on file Sexual Orientation Not on file Plan of Treatment Health Maintenance Due Date Last Done Comments Hepatitis C Virus (HCV) Screening 1981 Hepatitis B Immunization (1 of 3 - 19+ 3-dose series) 2000 Pap Smear 2002 Human Papillomavirus (HPV) Immunization (1 - 3-dose SCDM series) 2008 Cervical Cancer Screening (CCS) 2011 HPV/Cotest 2011 Influenza Immunization (#1) 04/06/202505/07, 05/28/2018, 05/31/2016, Additional history exists SARS-COV-2 Immunization ( season) 2025 Respiratory Syncytial Virus (RSV) Immunization (Adult) (1 - 1-dose 75+ series) 2056 DTaP/Tdap/Td Immunization Discontinued 2015, 02/13/2014, 03/25/2008, Additional history exists TdaP Immunization Completed 12/24/2015, , 03/25/2008 Meningococcal Immunization (ACWY) Aged Out No longer eligible based on patient's age to complete this topic Pneumococcal Immunization Combined Aged Out No longer eligible based on patient's age to complete this topic Rotavirus Immunization Aged Out No lo nger eligible based on patient's age to complete this topic
--- OUTSIDE RECORDS SUMMARY | 2025-06-18 10:02 | XMS_ITS | Patient Health Record ---
Author Organization [facility] ([address]) Address [address] [place] [id number] Care Team Providers Care Pay Station Attendant Name Role Phone Michelle Edwards Primary Care Provider Dr. Ben Cabello Unavailable [phone] Allergies Allergen (clinical drug ingredient) Drug/Non Drug Allergy documented on EMR Reaction Allergy Type Onset Date Status KEFLEX (uncoded) rash Allergy Act sherman Reason For Referral No Information Medications Medication SIG (Take, Route, Fr equency, Duration) Notes Start Date End Date Status Sertraline HCl 100 MG 1 tab(s) orally once a day Active SERTRALINE 100 mg 1 tab(s) orally once a day Active VYVANSE 30 mg 1 cap(s) orally once a day (in the morning) Active Vyvanse 30 MG 1 cap(s) orally once a day (in the morning) Active Social History Tobacco Use: Social History Observation Description Date Details (start date - stop date) Never Smoker NA - NA Tobacco Control (Standard) Question Answer Notes Tobacco use: Nonsmoker Problems Problem Type SNOMED Code ICD Code Onset Dates Problem Status W/U Status Risk Notes Problem 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
== END 2025-06-18 09:28 | disposition home or self-care (01) ==
LOC: ANHFOHIMG 09:29
PROVIDERS: PCP Physician Assistant; Visit Provider Physician Assistant
DX: Z12.31 Encounter for screening mammogram for malignant neoplasm of breast (principal)
CPT/HCPCS: 77063; 77067